=== PATIENT | male | born 1990 | race Caucasian/White ===

== ENCOUNTER 2017-08-28 11:28 | Observation (INO) | payer BC ==
[2017-08-28] MEDS ORDERED: Sodium Chloride 0.9% 10 ML Syringe FLUSH PRN (11:37)
--- NOTE | 2017-08-28 11:53 | EDM.PDOC ---
ED HPI GENERAL MEDICAL PROBLEM - General Chief Complaint: Neurological Problem Stated Complaint: Witnessed Seizure Time Seen by Provider: 08/28/17 11:29 Source of Information: Reports: Patient, EMS Notes Reviewed, Family, RN, RN Notes Reviewed History Limitations: Reports: Altered Mental Status - History of Present Illness INITIAL COMMENTS - FREE TEXT/NARRATIVE: Patient is brought to the ED at [facility] after he had a witness seizure that last about 30 seconds. Patient's friend states while they were having lunch , he noticed the patient get quiet, become rigid looking, started to shake. The friends helped the patient to the floor. No head injury or trauma. Friends states he did noticed some blood in the saliva. Patient was very post ictal and confused upon awakening. EMS was immediately called. Patient has a history of seizures in the past; most recently May 2017. He was seen by [facility] July 2017 and was continued on his Keppra. The patient states he is not taking that medication. Onset: Today, Sudden Onset Date: 08/28/17 - Related Data Allergies Allergy/AdvReac Type Severity Reaction Status Date / Time cefaclor [From Ceclor] Allergy Rash Verified 08/28/17 11:42 Home Meds: Home Meds Lisdexamfetamine Dimesylate [Vyvanse] 40 mg PO DAILY 04/23/15 [History] Multivitamin [Daily Multiple Vitamin] 1 tab PO DAILY 05/28/17 [History] levETIRAcetam [Keppra] 500 mg PO BID #30 tablet 05/30/17 [Rx] Past Medical History - Past Health History Medical/Surgical History: Denies Medical/Surgical History Neurological History: Reports: Seizure Psychiatric History: Reports: ADHD Other Psychiatric History: Aspergers syndrome Social & Family History - Family History Family Medical History: Noncontributory - Tobacco Use Smoking Status *Q: Never Smoker Second Hand Smoke Exposure: No - Caffeine Use Caffeine Use: Reports: Soda - Alcohol Use Days Per Week of Alcohol Use: 7 Number of Drinks Per Day: 3 Total Drinks Per Week: 21 - Recreational Drug Use Recreational Drug Use: Yes Drug Use in Last 12 Months: Yes Recreational Drug Type: Reports: Marijuana/Hashish Other Recreational Drug Type: mushrooms 4 to 5 yrs ago Recreational Drug Use Frequency: Daily ED ROS GENERAL - Review of Systems Review Of Systems: See Below Constitutional: Denies: Fever, Chills, Weakness Respiratory: Denies: Shortness of Breath, Cough Cardiovascular: Denies: Chest Pain, Palpitations GI/Abdominal: Denies: Abdominal Pain, Nausea, Vomiting Skin: Reports: No Symptoms Neurological: Reports: Confusion, Headache, Seizure Psychiatric: Reports: Confusion - Physical Exam Exam: See Below Exam Limited By: Altered Mental Status General Appearance: Alert, No Apparent Distress Eye Exam: Bilateral Eye: EOMI, Normal Inspection, PERRL Ears: Normal External Exam, Normal Canal, Normal TMs Nose: Normal Inspection Throat/Mouth: Normal Inspection, Normal Oropharynx, No Airway Compromise Head Exam: Atraumatic, Normocephalic Neck: Supple Respiratory/Chest: No Respiratory Distress, Lungs Clear, Normal Breath Sounds Cardiovascular: Normal Peripheral Pulses, Regular Rate, Rhythm GI/Abdominal: Normal Bowel Sounds, Soft, Non-Tender Neuro Exam (Abbreviated): Alert, Confused, Disoriented, Slow to Respond, Memory Loss Recent Events Skin Exam: Warm, Dry, Intact, Normal Color, No Rash EKG INTERPRETATION EKG Date: 08/28/17 Time: 12:06 Rhythm: NSR Rate (Beats/Min): 91 A[place]lia: Normal P-Wave: Present QRS: Normal ST-T: Normal QT: Normal WA/PQ Interval: 0.17 Comparison: No Change EKG Interpretation Comments: 1. Sinus Rhythm 2. Arm leads reverse Course - Vital Signs Last Recorded V/S: Last Vital Signs Temp 35.6 C 08/28/17 11:28 Pulse 93 08/28/17 11:28 Resp 16 08/28/17 11:28 BP 154/82 H 08/28/17 11:28 Pulse Ox 93 L 08/28/17 11:28 - Orders/Labs/Meds Orders: Active Orders 24 hr Category Date Time Status Admission Status [Patient Status] [ADT] Routine ADT 08/28/17 13:48 Ordered EKG 12 Lead [EKG Documentation Completion] [RC] STAT Care 08/28/17 11:38 Active Head wo Cont [CT] Stat Exams 08/28/17 11:37 Taken AMPHET/METH EXT CONF (GCMS) Stat Lab 08/28/17 13:33 Received CARBOXY-THC BY GC/MS Stat Lab 08/28/17 13:33 Received Sodium Chloride 0.9% [Saline Flush] Med 08/28/17 11:37 Active 10 ml FLUSH ASDIRECTED PRN Peripheral IV Insertion Adult [OM.PC] Routine Oth 08/28/17 11:37 Ordered Medication Orders Sodium Chloride (Saline Flush) 10 ml FLUSH ASDIRECTED PRN PRN Reason: Keep Vein Open Labs: Laboratory Tests 08/28/17 08/28/17 08/28/17 Range/Units 11:56 11:56 13:33 WBC 7.3 (4.0-10.0) x10^3/uL RBC 5.30 (4.5-6.0) x10^6/uL Hgb 16.5 D (14.0-18.0) g/dL Hct 48.4 (40.0-52.0) % MCV 91.3 (78.0-93.0) fL MCH 31.1 (26.0-32.0) pg MCHC 34.1 (32.0-36.0) g/dL RDW Coeff of Annemarie 12.8 (10.0-15.0) % Plt Count 214 (130-400) x10^3/uL Neut % (Auto) 49.0 L (50.0-80.0) % Lymph % (Auto) 37.3 (25.0-50.0) % [place] % (Auto) 9.1 (2.0-11.0) % Eos % (Auto) 4.0 (0.0-4.0) % Baso % (Auto) 0.6 (0.2-1.2) % Sodium 140 (136-145) mmol/L Potassium 4.3 (3.5-5.1) mmol/L Chloride 105 (98-107) mmol/L Carbon Dioxide 21 D (21-32) mmol/L BUN 11 (7-18) mg/dL Creatinine 1.4 H (0.70-1.30) mg/dL Est Cr Clr Drug Dosing 83.67 mL/min Estimated GFR (MDRD) > 60 Glucose 115 H (74-106) mg/dL Calcium 8.9 (8.5-10.1) mg/dL Creatine Kinase 250 (39-308) U/L Creatine Kinase Index 0.7 (0.0-4.0) % CK-MB (CK-2) 1.8 (0.0-3.6) ng/mL Troponin I < 0.017 (<=0.056) ng/mL Urine Color Yellow (YELLOW) Urine Appearance Clear (CLEAR) Urine pH 5.5 (5.0-8.0) Ur Specific [place] >=1.030 Urine Protein 30 H (NEGATIVE) mg/dL Urine Glucose (UA) Negative (NEGATIVE) mg/dL Urine Ketones Negative (NEGATIVE) mg/dL Urine Occult Blood Trace-lysed H (NEGATIVE) Urine Nitrite Negative (NEGATIVE) Urine Bilirubin Negative (NEGATIVE) Urine Urobilinogen 0.2 (0.2) EU/dL Ur Leukocyte Esterase Negative (NEGATIVE) Urine RBC 0-5 (NOT SEEN) /HPF Urine WBC 0-5 (NOT SEEN) /HPF Ur Squamous Epith Cells Rare (NEGATIVE) /HPF Urine Bacteria Not seen (NEGATIVE) /HPF Urine Mucus Not seen (NEGATIVE) /LPF Urine Opiates Screen (NEAGTIVE) Ur Buprenorphine Scrn (NEGATIVE) Ur Oxycodone Screen (NEGATIVE) Urine Methadone Screen (NEGATIVE) Ur Barbiturates Screen (NEGATIVE) Ur Tricyclics Screen (NEGATIVE) Ur Amphetamine Screen (NEGATIVE) U Methamphetamines Scrn (NEGATIVE) Urine MDMA Screen (NEGATIVE) U Benzodiazepines Scrn (NEGATIVE) U Cocaine Metab Screen (NEGATIVE) U Marijuana (THC) Screen (NEGATIVE) Ethyl Alcohol < 3 (0-3) mg/dL 08/28/17 Range/Units 13:33 WBC (4.0-10.0) x10^3/uL RBC (4.5-6.0) x10^6/uL Hgb (14.0-18.0) g/dL Hct (40.0-52.0) % MCV (78.0-93.0) fL MCH (26.0-32.0) pg MCHC (32.0-36.0) g/dL RDW Coeff of Annemarie (10.0-15.0) % Plt Count (130-400) x10^3/uL Neut % (Auto) (50.0-80.0) % Lymph % (Auto) (25.0-50.0) % [place] % (Auto) (2.0-11.0) % Eos % (Auto) (0.0-4.0) % Baso % (Auto) (0.2-1.2) % Sodium (136-145) mmol/L Potassium (3.5-5.1) mmol/L Chloride (98-107) mmol/L Carbon Dioxide (21-32) mmol/L BUN (7-18) mg/dL Creatinine (0.70-1.30) mg/dL Est Cr Clr Drug Dosing mL/min Estimated GFR (MDRD) Glucose (74-106) mg/dL Calcium (8.5-10.1) mg/dL Creatine Kinase (39-308) U/L Creatine Kinase Index (0.0-4.0) % CK-MB (CK-2) (0.0-3.6) ng/mL Troponin I (<=0.056) ng/mL Urine Color (YELLOW) Urine Appearance (CLEAR) Urine pH (5.0-8.0) Ur Specific [place] Urine Protein (NEGATIVE) mg/dL Urine Glucose (UA) (NEGATIVE) mg/dL Urine Ketones (NEGATIVE) mg/dL Urine Occult Blood (NEGATIVE) Urine Nitrite (NEGATIVE) Urine Bilirubin (NEGATIVE) Urine Urobilinogen (0.2) EU/dL Ur Leukocyte Esterase (NEGATIVE) Urine RBC (NOT SEEN) /HPF Urine WBC (NOT SEEN) /HPF Ur Squamous Epith Cells (NEGATIVE) /HPF Urine Bacteria (NEGATIVE) /HPF Urine Mucus (NEGATIVE) /LPF Urine Opiates Screen Negative (NEAGTIVE) Ur Buprenorphine Scrn Negative (NEGATIVE) Ur Oxycodone Screen Negative (NEGATIVE) Urine Methadone Screen Negative (NEGATIVE) Ur Barbiturates Screen Negative (NEGATIVE) Ur Tricyclics Screen Negative (NEGATIVE) Ur Amphetamine Screen Positive H (NEGATIVE) U Methamphetamines Scrn Negative (NEGATIVE) Urine MDMA Screen Negative (NEGATIVE) U Benzodiazepines Scrn Negative (NEGATIVE) U Cocaine Metab Screen Negative (NEGATIVE) U Marijuana (THC) Screen Positive H (NEGATIVE) Ethyl Alcohol (0-3) mg/dL Meds: Medications Generic Name Dose Route Start Last Admin Trade Name Freq PRN Reason Stop Dose Admin Sodium Chloride 10 ml 08/28/17 11:37 Saline Flush FLUSH ASDIRECTED PRN Keep Vein Open - Radiology Interpretation Free Text/Narrative:: CT Head: No acute intracranial findings; mild to moderate changes of paranasal sinus See scanned report in EMR CT Results Date: 08/28/17 CT Results Time: 12:13 Departure - Departure Time of Disposition: 13:52 Disposition: Refer to Observation Condition: Good Clinical Impression: Seizure - Discharge Information - Problem List Review Problem List Initiated/Reviewed/Updated: Yes - My Orders Last 24 Hours: My Active Orders 08/28/17 11:37 Head wo Cont [CT] Stat Sodium Chloride 0.9% [Saline Flush] 10 ml FLUSH ASDIRECTED PRN Peripheral IV Insertion Adult [OM.PC] Routine 08/28/17 11:38 EKG 12 Lead [EKG Documentation Completion] [RC] STAT 08/28/17 13:33 AMPHET/METH EXT CONF (GCMS) Stat CARBOXY-THC BY GC/MS Stat 08/28/17 13:48 Admission Status [Patient Status] [ADT] Routine - Assessment/Plan Admission H&P: Please use this note as an admission H&P Last 24 Hours: My Active Orders 08/28/17 11:37 Head wo Cont [CT] Stat Sodium Chloride 0.9% [Saline Flush] 10 ml FLUSH ASDIRECTED PRN Peripheral IV Insertion Adult [OM.PC] Routine 08/28/17 11:38 EKG 12 Lead [EKG Documentation Completion] [RC] STAT 08/28/17 13:33 AMPHET/METH EXT CONF (GCMS) Stat CARBOXY-THC BY GC/MS Stat 08/28/17 13:48 Admission Status [Patient Status] [ADT] Routine Plan: Admit observation for s/p ictal; restart Keppra; keep hydrated; monitor for no seizures
[2017-08-28 12:32] LABS: CHLORIDE,CL 105 mmol/L (98-107); SODIUM,NA 140 mmol/L (136-145)
[2017-08-28] MEDS ORDERED: Ondansetron 4 MG Tab.DIS PO PRN (14:48)
[2017-08-28] MEDS ORDERED: Acetaminophen 325 MG Tab PO PRN (14:48)
[2017-08-28] MEDS ORDERED: LORazepam 2 MG/ML SDV IVPUSH PRN (14:52)
[2017-08-28] MEDS ORDERED: LEVETIRACETAM 500 MG PO SCH (15:00)
[2017-08-28] MEDS: Sodium Chloride 0.9% 1,000 ML IV SCH ×2 (15:23→22:01)
[2017-08-28] MEDS: VYVANSE 40 MG PO SCH (18:05)
[2017-08-28] MEDS: LEVETIRACETAM 500 MG PO SCH ×2 (18:05→22:01)
[2017-08-29] MEDS: Sodium Chloride 0.9% 1,000 ML IV SCH (04:38)
[2017-08-29 05:33] VITALS: BP 122/64
[2017-08-29] MEDS: LEVETIRACETAM 500 MG PO SCH (07:51)
[2017-08-29] MEDS: VYVANSE 40 MG PO SCH (07:51)
[2017-08-29] MEDS ORDERED: Multivitamins with Iron/Calcium/Folic Acid/Minerals Tab PO SCH (08:00)
--- NOTE | 2017-08-29 08:02 | PCM.DCSUM1 ---
Discharge Summary - Hospital Course HPI Initial Comments: Patient was brought to the ED at [facility] after he had a witness seizure that last about 30 seconds yesterday while eating lunch. Patient's friend states while they were having lunch, he noticed the patient get quiet, become rigid looking, started to shake. The friends helped the patient to the floor. No head injury or trauma. Friends states he did noticed some blood in the saliva. Patient was very post ictal and confused upon awakening. EMS was immediately called. Patient has a history of seizures in the past; most recently May 2017. He was seen by [facility] July 2017 and was continued on his Keppra. The patient states he is not taking that medication. It is unclear why the patient has not been taking his Keppra. He thinks he just forgets. - Discharge Data Discharge Date: 08/29/17 Discharge Disposition: Home, Self-Care 01 Condition: Good - Patient Summary/Data Operative Procedure(s) Performed: None Labs Pending at D/C: None Recommended Follow-up Testing/Procedures: None Planned Operative Procedure(s) after DC: None Hospital Course: Overall, patient did well during his hospital stay. No seizures during this admission. No issues with BM's or urination. Tolerated diet. Ambulating independently. No pain - Patient Instructions Diet: Regular Diet as Tolerated Activity: No Strenuous Activities, Rest and Relax Today Driving: Do Not Drive Showering/Bathing: May Shower Other/Special Instructions: Return to ER for any seizure activity - Discharge Plan Home Medications: Home Meds Lisdexamfetamine Dimesylate [Vyvanse] 40 mg PO DAILY 04/23/15 [History] Multivitamin [Daily Multiple Vitamin] 1 tab PO DAILY 05/28/17 [History] levETIRAcetam [Keppra] 500 mg PO BID #30 tablet 05/30/17 [Rx] Patient Handouts: Seizure, Adult Referrals: Elizabet Lewis, MEDIA OPERATOR [Primary Care Provider] - - Discharge Summary/Plan Comment DC Time >30 min.: No Discharge Summary/Plan Comment: Patient will be discharge home today. I will refill the patients Keppra for one month. He needs to follow up with his PCP this week for a recheck. No changes with any other medications. Keep Neurology appointment for next month. Discussed with patient to return if any more seizure problems. - General Info Date of Service: 08/29/17 Admission Dx/Problem (Free Text: Seizure Subjective Update: Patient offers no specific complaints. He denies any pain. No focal neurological complaints. Functional Status: Reports: Pain Controlled, Tolerating Diet, Ambulating, Urinating Numeric/FACES Score: 0 - Review of Systems General: Denies: Fever, Weakness, Chills Pulmonary: Denies: Shortness of Breath, Cough Cardiovascular: Denies: Chest Pain, Palpitations Gastrointestinal: Denies: Abdominal Pain, Nausea, Vomiting Skin: Reports: No Symptoms Neurological: Reports: No Symptoms. Denies: Dizziness, Headache, Seizure - Patient Data Vitals - Most Recent: Last Vital Signs Temp 36.9 C 08/29/17 05:32 Pulse 69 08/29/17 05:32 Resp 18 08/29/17 05:32 BP 122/64 08/29/17 05:32 Pulse Ox 96 08/29/17 01:50 Weight - Most Recent: 95.254 kg I&O - Last 24 hours: Intake & Output 08/28/17 08/29/17 08/29/17 22:59 06:59 14:59 Intake Total 942 3050 Output Total 450 850 Balance 492 2200 Lab Results - Last 24 hrs: Laboratory Results - last 24 hr 08/29/17 08/29/17 Range/Units 06:22 06:22 WBC 7.7 (4.0-10.0) x10^3/uL RBC 4.75 (4.5-6.0) x10^6/uL Hgb 15.0 D (14.0-18.0) g/dL Hct 43.6 (40.0-52.0) % MCV 91.8 (78.0-93.0) fL MCH 31.6 (26.0-32.0) pg MCHC 34.4 (32.0-36.0) g/dL RDW Coeff of Annemarie 12.7 (10.0-15.0) % Plt Count 168 (130-400) x10^3/uL Neut % (Auto) 62.3 (50.0-80.0) % Lymph % (Auto) 23.2 L (25.0-50.0) % [place] % (Auto) 11.0 (2.0-11.0) % Eos % (Auto) 3.2 (0.0-4.0) % Baso % (Auto) 0.3 (0.2-1.2) % Sodium 141 (136-145) mmol/L Potassium 4.3 (3.5-5.1) mmol/L Chloride 107 (98-107) mmol/L Carbon Dioxide 29 (21-32) mmol/L BUN 13 (7-18) mg/dL Creatinine 1.7 H (0.70-1.30) mg/dL Est Cr Clr Drug Dosing 68.90 mL/min Estimated GFR (MDRD) 48 Glucose 94 (74-106) mg/dL Calcium 8.3 L (8.5-10.1) mg/dL Med Orders - Current: Current Medications Acetaminophen (Tylenol) 650 mg PO Q4H PRN PRN Reason: Pain (Mild 1-3)/fever Sodium Chloride (Normal Saline) 1,000 mls @ 150 mls/hr IV ASDIRECTED [facility] Last Admin: 08/29/17 04:38 Dose: 150 mls/hr Levetiracetam (Keppra) 500 mg PO BID [facility] Last Admin: 08/29/17 07:51 Dose: 500 mg Lorazepam (Ativan) 1 mg IVPUSH Q4H PRN PRN Reason: Seizures Multivitamins/Minerals (Thera M Plus) 1 tab PO DAILY [facility] Last Admin: 08/29/17 07:50 Dose: 1 tab Non-Formulary Medication[Vyvanse] 40 Mg) Own Med 40 mg PO DAILY [facility] Last Admin: 08/29/17 07:51 Dose: 40 mg Ondansetron HCl (Zofran Odt) 4 mg PO Q6H PRN PRN Reason: nausea, able to take PO Last Admin: 08/28/17 18:53 Dose: 4 mg Sodium Chloride (Saline Flush) 10 ml FLUSH ASDIRECTED PRN PRN Reason: Keep Vein Open Discontinued Medications Levetiracetam (Keppra) 500 mg PO BID [facility] Last Admin: 08/28/17 18:20 Dose: Not Given - Exam General: Reports: Alert, Oriented, Cooperative, No Acute Distress HEENT: Reports: Pupils Equal, Pupils Reactive, EOMI Lungs: Reports: Clear to Auscultation, Normal Respiratory Effort Cardiovascular: Reports: Regular Rate, Regular Rhythm, No Murmurs GI/Abdominal Exam: Normal Bowel Sounds, Soft, Non-Tender Skin: Reports: Warm, Dry, Intact Neurological: Reports: No New Focal Deficit, Normal Speech *Q Meaningful Use (DIS) - VTE *Q VTE Criteria *Q: No risk for falls at time of discharge - Stroke *Q Stroke Criteria *Q: - AMI *Q AMI Criteria *Q:
== END 2017-08-29 09:40 | disposition home or self-care (01) ==
LOC: VM.ED 11:28 → VM.MS 13:48
PROVIDERS: ADMIT Nurse Practitioner Family; ATTEND Nurse Practitioner Family
DX: R56.9 Unspecified convulsions (principal); F84.5 Asperger's syndrome; F90.9 Attention-deficit hyperactivity disorder, unspecified type; Z79.899 Other long term (current) drug therapy; Z88.1 Allergy status to other antibiotic agents
CPT/HCPCS: 36415; 70450; 80048; 80305; 80349; 81001; 82550; 82553; 84484; 85025; 93005; 96360; 96361; 99285; A9270; G0378; G0480; J7030

== ENCOUNTER 2021-12-16 17:38 | Emergency (ER) | payer BC ==
[2021-12-16 18:15] VITALS: BP 145/91; PULSE 98
[2021-12-16 18:26] LABS: ANION GAP 14.2 mmol/L (5-15)
[2021-12-16] MEDS ORDERED: Sodium Chloride 0.9% 1,000 ML IV ONE (18:49)
[2021-12-16] MEDS ORDERED: Iopamidol 612 MG/ML 100 ML Bottle IVPUSH ONE (18:58)
[2021-12-16] MEDS ORDERED: fentaNYL 50 MCG/ML SDV IVPUSH ONE (19:36)
== END 2021-12-16 20:42 | disposition home or self-care (01) ==
LOC: VM.ED 17:38
DX: R10.9 Unspecified abdominal pain (principal); R11.2 Nausea with vomiting, unspecified; Z88.1 Allergy status to other antibiotic agents
CPT/HCPCS: 70450; 71260; 74177; 80053; 81001; 82150; 83690; 84484; 85025; 86140; 93005; 96361; 96374; 99284; J3010; J7030; Q9967

== ENCOUNTER 2022-05-02 15:29 | Emergency (ER) | payer BC ==
[2022-05-02] MEDS: Sodium Chloride 0.9% 1,000 ML IV ONE ×2 (16:05→17:30)
[2022-05-02 16:20] LABS: CHLORIDE,CL 104 mmol/L (98-107); SODIUM,NA 139 mmol/L (136-145)
[2022-05-02 16:27] LABS: ANION GAP 17.1 mmol/L (5-15); ESTIMATED GFR 74 mL/min (>=60)
[2022-05-02 20:02] VITALS: BP 125/89; PULSE 75
== END 2022-05-02 18:48 | disposition home or self-care (01) ==
LOC: VM.ED 15:29
DX: G40.209 Localization-related (focal) (partial) symptomatic epilepsy and epileptic syndromes with complex partial seizures, not intractable, without status epilepticus (principal); F10.10 Alcohol abuse, uncomplicated; Z88.1 Allergy status to other antibiotic agents; Z79.899 Other long term (current) drug therapy
CPT/HCPCS: 36415; 51701; 80053; 80177; 82550; 83735; 85025; 86140; 93005; 93010; 96360; 96361; 99284; 99285-25; J7030

== ENCOUNTER 2022-09-28 09:31 | Emergency (ER) | payer BC ==
[2022-09-28] MEDS ORDERED: Sodium Chloride 0.9% 1,000 ML IV ONE (09:44)
[2022-09-28] MEDS ORDERED: levETIRAcetam in NaCl (iso-os) 1,000 MG in Premix Bag 1 BAG IV ONE ×2 (09:48)
[2022-09-28] MEDS ORDERED: Ondansetron 4 MG/2 ML SDV IVPUSH ONE (09:55)
[2022-09-28 10:20] LABS: ANION GAP 33.5 mmol/L (5-15); CHLORIDE,CL 98 mmol/L (98-107); SODIUM,NA 139 mmol/L (136-145)
[2022-09-28 10:22] LABS: ESTIMATED GFR 47 mL/min (>=60)
[2022-09-28 10:37] VITALS: BP 121/71; PULSE 96
[2022-09-28] MEDS ORDERED: Acetaminophen 325 MG Tab PO ONE (12:54)
[2022-10-02] MEDS ORDERED: Lactated Ringers 1,000 ML IV ONE (15:07)
== END 2022-09-28 13:07 | disposition home or self-care (01) ==
LOC: VM.ED 09:31
DX: R56.9 Unspecified convulsions (principal); I60.9 Nontraumatic subarachnoid hemorrhage, unspecified; E86.0 Dehydration; R79.89 Other specified abnormal findings of blood chemistry; Z88.1 Allergy status to other antibiotic agents; Z79.899 Other long term (current) drug therapy
CPT/HCPCS: 70450; 72100; 80053; 80177; 80307; 82550; 83735; 85025; 86140; 93005; 93010; 96361; 96365; 96375; 99285; 99285-25; A9270-GY; J1953; J2405; J7030